=== PATIENT | male | born 1955 ===

== ENCOUNTER → 2023-03-13 13:25 | Outpatient (CLI) | payer MEDICARE, SELFPAY ==
--- NOTE | ~2023-03-13 | MR_ITS ---
EXAMINATION: MR ankle RT wo con DATE: 03/13/2023 14:10 INDICATION: Achilles tendinitis with posterior right ankle pain. TECHNIQUE: Magnetic resonance imaging (MRI) of the right ankle was performed without intravenous cont rast. Sequences included sagittal, coronal, and axial proton-density weighted fast spin echo without and with fat saturation. COMPARISON: None. FINDINGS: Medial ankle ligaments: Thickening of the superficial deltoid ligament without surrounding edema consistent with scarring rel ated to chronic sprain. Deep deltoid ligament as well as the spring ligament complex are normal. Lateral ankle ligaments: The anterior and posterior inferior tibiofibular ligaments are normal. There is prominent thickening and increased signal along the inferior aspect of the calcaneofibular ligament and at the calcaneal i nsertion of the calcaneofibular ligament without surrounding edema consistent with scarring related t o chronic sprains. The posterior talofibular ligaments are normal. Tendons: Achilles tendon is normal with no tendinosis, tear or peritendinitis. Mild peroneus longus tendinopat hy with linear increased signal extending across the tendon at the level of the retromalleolar groove suggesting a small split tear. Additional mild tendinopathy of the peroneus brevis tendon also with longitudinal split tear. There is thickening of the portion of the tendon on one side of the split te ar at the level of the retromalleolar groove which appears to abruptly taper at the level of the troc hlear eminence of the calcaneus consistent with the proximal margin of a partial-thickness tear. The tibialis anterior and extensor hallucis longus and extensor digitorum longus tendons are normal. The tibialis posterior, flexor digitorum longus and flexor hallucis longus tendons are normal. Plantar fascia: Mild enthesopathy proximal plantar aponeurosis which appears mildly thickened with moderate-sized spu r at its calcaneal origin. No associated marrow or surrounding soft tissue edema to suggest acute patricia ntar fasciitis. Bones/other: There is suggestion of mild pes planus with flattening of the longitudinal arch although this would b e more accurately assessed with weightbearing radiographs. Normal bone marrow signal throughout with no reactive edema, fracture or pathologic marrow replacing process. 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 There are 3 tiny foci of susceptibility artifact likely related to some ferromagnetic debris along the skin surface at the plantar aspect of the hindfoot. Fluid: Minimal talonavicular joint effusion with small amount of fluid bulging the lateral side of the dorsa l recess. Otherwise physiologic amount fluid in the joint spaces. No other abnormal fluid collections . IMPRESSION: 1. Normal Achilles tendon. 2. Mild tendinopathy and longitudinal split tearing of the peroneus longus and brevis tendons with ad ditional partial thickness tear of the peroneus brevis tendon. 3. Scarring consistent with chronic medial and lateral ankle sprains of the superficial deltoid, ante rior talofibular and calcaneofibular ligaments. Reviewed, dictated and finalized at location A. IMPRESSION: 1. Normal Achilles tendon. 2. Mild tendinopathy and longitudinal split tearing of the peroneus longus and brevis tendons with additional partial thickness tear of the peroneus brevis te ndon. 3. Scarring consistent with chronic medial and lateral ankle sprains of the sup erficial deltoid, anterior talofibular and calcaneofibular ligaments.
== END ==
PROVIDERS: PCP Student in an Organized Health Care Education/Training Program; Visit Provider Student in an Organized Health Care Education/Training Program
DX: M76.61 Achilles tendinitis, right leg (principal); M25.571 Pain in right ankle and joints of right foot
CPT/HCPCS: 73721